=== PATIENT | male | born 1955 | race Caucasian/White ===

== ENCOUNTER → 2023-08-06 13:30 | Outpatient (CLI) | payer MEDICARE, SELFPAY ==
--- NOTE | 2023-08-06 14:40 | DI.RAD_ITS ---
Exam(s) XR HIP RT COMPLETE AP PELVIS EXAM: XR HIP RT COMPLETE AP PELVIS CLINICAL HISTORY: PAIN RT HIP JOINT M25.551. TECHNIQUE: 2D digital imaging was performed of the right hip. Three images were obtained. AP pelvis and lateral right hip views were obtained. COMPARISON: No exams were available for comparison FINDINGS: BONES: No acute fracture is present. No bony destructive lesion is seen. JOINTS: No dislocation present. There are marked degenerative changes seen in the right hip with loss of the joint space. Subchondral sclerosis and cysts are also seen. There is decreased volume of th e right femoral head. Osseous fragments are seen lateral to the right acetabulum which may be fragme nts of the femoral head. There is mild narrowing of the left hip joint space. Degenerative changes are seen in the lower lumbosacral spine. SOFT TISSUE: Normal. IMPRESSION: 1. Advanced degenerative changes seen in the right hip. 2. Possible fragmentation of the femoral head with osseous fragments lateral to the acetabulum. This may be chronic. CT scan may be considered for further evaluation. DATA REPOSITORY: RADIATION DOSE DELIVERED:
--- NOTE | 2023-08-06 14:40 | DI.RAD_ITS ---
Exam(s) XR LUMBAR SPINE COMPLETE EXAM: XR LUMBAR SPINE COMPLETE CLINICAL HISTORY: PAIN RT HIP JOINT M25.551. TECHNIQUE: 2D digital imaging was performed of the lumbar spine. Six images were obtained. AP, lat eral, right oblique, left oblique and L5-S1 spot views were obtained. COMPARISON: No exams were available for comparison FINDINGS: BONES: No fracture or destructive lesion. There are endplate osteophytes at multiple levels of the bethel mbar spine. There are degenerative changes of the facets particularly at L4-5 and L5-S1. DISKS: There is disc space narrowing at L3-4 and L5-S1. There is a vacuum disc at L3-4. ALIGNMENT: Lumbar spinal alignment is within normal limits. No spondylolysis or spondylolisthesis. SOFT TISSUE: Vascular calcifications are present. IMPRESSION: Moderate degenerative changes in the lumbar spine. DATA REPOSITORY: RADIATION DOSE DELIVERED:
== END ==
PROVIDERS: Visit Provider Physician Assistant Medical
DX: M51.26 Other intervertebral disc displacement, lumbar region (principal)
CPT/HCPCS: 72110; 73502

== ENCOUNTER → 2023-08-07 08:58 | Outpatient (CLI) | payer MEDICARE, SELFPAY ==
--- NOTE | 2023-08-07 | DI.CT_ITS ---
Exam(s) CT LOWER EXTREMITY RT WO EXAM: CT LOWER EXTREMITY RT WO CLINICAL HISTORY: INC. RT HIP PAIN,M25.551,ABNL XR,H/O FALL,? BONE FRAGMENT. TECHNIQUE: Imaging Protocol: Axial computed tomography images with coronal and sagittal reformatted images were created and reviewed. CONTRAST MATERIAL: Noncontrast- COMPARISON: CR XR HIP RT COMPLETE AP PELVIS from 08/06/2023 FINDINGS: Bones: There is no evidence of acute fracture or dislocation. Chronic appearing deformity of the femoral head with some collapse of the femoral head at the articul ar surface. There are multiple surrounding chronic appearing bony fragments. Joints: There are severe degenerative changes of the hip joint. There is severe joint space narrow ing. There is sclerosis and subchondral cyst formation on both sides of the joint. Soft Tissues: No visible hematoma. Large hip joint effusion Intrapelvic contents appendix visible appears normal. Status post prostatectomy. IMPRESSION: Severe degenerative changes of the right hip. Chronic appearing deformity of the femoral head with m ultiple adjacent bony fragments. No evidence of acute fracture. RADIATION DOSE DELIVERED: 593.65mGy.cm Total DLP DATA REPOSITORY: All CT scans at this facility are submitted to the National Radiology Data Registry (NRDR) Dose Index Registry (DIR) with the [employer] [place] [employer] (ACR). RADIATION OPTIMIZATION: All CT scans at this facility use at least one of these dose optimization te chniques: automated exposure control; mA and/or kV adjustment per patient size (includes targeted exa ms where dose is matched to clinical indication); or iterative reconstruction.
== END ==
PROVIDERS: Visit Provider Physician Assistant Medical
DX: M16.11 Unilateral primary osteoarthritis, right hip (principal)
CPT/HCPCS: 73700

== ENCOUNTER 2023-08-14 09:02 | Outpatient (CLI) | payer MEDICARE, SELFPAY ==
--- NOTE | 2023-08-14 08:15 | DI.RAD_ITS ---
Exam(s) XR PELVIS AP EXAM: XR PELVIS AP CLINICAL HISTORY: DJD R HIP. TECHNIQUE: 2D digital imaging was performed.One images were obtained. COMPARISON: CR XR HIP RT COMPLETE AP PELVIS from 08/06/2023 FINDINGS: BONES: No acute fracture is present. No bony destructive lesion is seen. JOINTS: No dislocation present. Stable advanced degenerative changes are seen in the right hip with l oss of volume and lateral subluxation of the right humeral head relative to the acetabulum. There is again seen an old osseous density lateral to the acetabulum. SOFT TISSUE: Normal. IMPRESSION: Stable chronic changes of the right hip. DATA REPOSITORY: RADIATION DOSE DELIVERED:
== END 2023-08-14 09:03 | disposition home or self-care (01) ==
LOC: DIORS 09:02
PROVIDERS: Visit Provider Physician Assistant
DX: M16.11 Unilateral primary osteoarthritis, right hip (principal)
CPT/HCPCS: 99203; 72170

== ENCOUNTER 2023-08-17 05:15 | Outpatient (CLI) | payer MEDICARE, SELFPAY ==
[2023-08-17 16:21] LABS: HCT 44.5 % (40.0-50.0); HGB 14.7 g/dL (13.5-17.5); MCH 31.7 pg (27.0-33.0); MCV 96 fL (80-95); MPV 9.5 fL (8.0-11.0); Platelet Count 311 10^3/uL (130-400); RBC 4.63 10^6/uL (4.36-5.78); RDW 12.4 % (11.8-14.1); RDW-SD 44.3 fL; WBC 12.35 10^3/uL (4.4-10.8)
[2023-08-17 17:37] LABS: Anion Gap 9.6 mmol/L (3-11); BUN 21 mg/dL (7-18); CO2 28.4 mmol/L (21.0-32.0); CREATININE 0.9 mg/dL (0.70-1.30); Calcium 9.2 mg/dL (8.5-10.1); Chloride 103 mmol/L (98-107); Estimated GFR 92.45 (mL/min/1.73m2); Glucose 88 mg/dL (74-106); Potassium 4.1 mmol/L (3.5-5.1); Sodium 141 mmol/L (136-145)
== END 2023-08-17 05:16 | disposition home or self-care (01) ==
LOC: LBO 05:16
PROVIDERS: Visit Provider Student in an Organized Health Care Education/Training Program
DX: M16.11 Unilateral primary osteoarthritis, right hip (principal); Z01.818 Encounter for other preprocedural examination
CPT/HCPCS: 36415; 80048; 85027

== ENCOUNTER 2023-08-18 08:21 | Day surgery (SDC) | payer MEDICARE, SELFPAY ==
[2023-08-18] VITALS (9 sets, daily range): BP systolic 112–148; BP diastolic 72–93; PULSE 69–92; RESP 15–18; TEMP 35.9–36.6; O2SAT 94–97; BMI 31.8
--- NOTE | 2023-08-18 07:52 | W.PM.DSUDISC ---
Date of service: 08/18/23 Time of Service: 09:13 Discharge Plan Disposition Patient Disposition: Home Condition: Good Discharge Details Reason For Visit: Right hip DJD Attending Provider: Saul Andrew Primary Care Provider: Antionette,Local Home Meds and New Rx's Prescriptions: New celecoxib [Celebrex] 200 mg capsule 200 mg PO BID PRNQty: 60 0RF Rx Instructions: Take one tablet twice daily for pain and inflammation aspirin 81 mg tablet,delayed release (DR/EC) 81 mg PO BID 30 Days Qty: 60 0RF acetaminophen 500 mg tablet 1,000 mg PO Q8H PRN Qty: 90 0RF Rx Instructions: Take two tablets up to every 8 hours as needed for pain pantoprazole 40 mg tablet,delayed release (DR/EC) 40 mg PO DAILY Qty: 14 0RF docusate sodium [Colace] 100 mg capsule 100 mg PO BID Qty: 30 0RF oxycodone 5 mg tablet 5 mg PO Q6H PRNQty: 12 0RF Rx Instructions: Take one tablet up to every 6 hours as needed for severe postoperative pain Continued allopurinol 300 mg tablet 300 mg PO DAILY irbesartan 150 mg tablet 150 mg PO DAILY rosuvastatin 20 mg tablet 20 mg PO DAILY Discontinued celecoxib 200 mg capsule 200 mg PO BID PRN (Reason: pain) Qty: 14 0RF Rx Instructions: Take one tablet twice a day for severe pain and inflammation Discharge Instructions Additional Instructions: Hip Synovectomy Discharge Instructions Activity: You have no restrictions on movement or positioning, but do not try to force what you do. You will find some stiffness and weakness with hip flexion (lifting your knee). Do not try to strengthen this too early, continue to practice walking and stairs and this will come. Dressing: Keep the surgical dressing in place for at least one week. After the first week it may be removed and replace with light gauze and tape or nothing. It may get wet after 3 days but avoid soaking the dressing. If it gets wet, just lightly pat dry. It is important to always keep some gauze between skin folds, especially when you are sitting. Spend some time with the wound exposed when you are lying flat as the incision does wrinkle onto itself. Medications: - You should take Tylenol and an anti-inflammatory Celebrex as your primary pain control medications. If the Celebrex is too expensive or not covered, please call the office for another alternative (Advil/Ibuprofen or Naproxen/Aleve). - You have been prescribed a stronger pain medication Oxycodone for breakthrough pain, take as needed as prescribed. - You have also been prescribed a stomach acid reduction agent Pantoprozole to help reduce stomach acid and reflux. - You will be taking Aspirin 81mg twice a day for DVT prevention unless instructed otherwise. - If you have constipation you should take Colace (which has been prescribed) or Miralax (which is available [id number]). It takes most people 3-4 days to have a bowel movement. Follow-up: 2 weeks If you have any acute concerns or questions, please do not hesitate to contact the office at [phone]. You may contact Dr. Andrew with any questions after hours through the hospital at [phone] or on his cell phone at [phone]. Stand Alone Forms: Anesthesia Discharge Inst., Cynthia Higgins (U) Referrals: Saul Andrew MD [ [facility] STAFF PHYSICIAN] - 08/31/23 2:00 pm Equipment/Supplies: Walker Activity:: Activity as Tolerated Remove Dressings/Wound Care:: Do Not Remove Shower/Bathe:: 72 hours and Cover Diet:: As Tolerated Discharge Orders Discharge Orders: Discharge Order (Routine); Ordered 08/18/23 Ordered By: Shruthi Betancourt
[2023-08-18] MEDS: Acetaminophen 500 MG TAB 1000 MG PO (09:02)
[2023-08-18] MEDS: Celecoxib 200 MG CAP 400 MG PO (09:03)
--- NOTE | 2023-08-18 09:09 | W.ANESPRE ---
General Info Date of Service Date Performed: 08/18/23 Height: 6 ft Weight: 106.5 kg Body Mass Index (BMI): 31.8 Surgical Procedure: Operation Date: 08/18/23 11:35 Proposed Procedure Side Surgeon p Hip Total Hip Anterior, ACTIS Right Saul Andrew MD Meds Allergies and Home Medications Allergies Allergy/AdvReac Type Severity Reaction Status Date / Time No Known Allergies Allergy Verified 08/14/23 15:03 Home Medication Medication Instructions Recorded allopurinol 300 mg tablet 300 mg PO DAILY 08/14/23 irbesartan 150 mg tablet 150 mg PO DAILY 08/14/23 rosuvastatin 20 mg tablet 20 mg PO DAILY 08/14/23 acetaminophen 500 mg tablet 1,000 mg (2 x 500 mg) PO Q8H PRN 08/18/23 pain #90 tabs aspirin 81 mg tablet,delayed 81 mg PO BID 30 days #60 tabs 08/18/23 release celecoxib 200 mg capsule (Celebrex) 200 mg PO BID PRN #60 caps 08/18/23 dexamethasone 4 mg tablet 4 mg PO DAILY #2 tabs 08/18/23 docusate sodium 100 mg capsule 100 mg PO BID #30 caps 08/18/23 (Colace) oxycodone 5 mg tablet 5 mg PO Q6H PRN #12 tabs 08/18/23 pantoprazole 40 mg tablet,delayed 40 mg PO DAILY #14 tabs 08/18/23 release Current Visit Medications: Current Medications Generic Name Dose Route Start Last Admin Trade Name Freq PRN Reason Stop Dose Admin Acetaminophen 1,000 mg 08/18/23 06:00 08/18/23 09:02 Acetaminophen 500 Mg Tab PO 08/18/23 18:00 1,000 mg PREOP ALEK Administration Celecoxib 400 mg 08/18/23 06:00 08/18/23 09:03 Celecoxib 200 Mg Cap PO 08/18/23 18:00 400 mg PREOP ALEK Administration Hydromorphone HCl 0.5 mg 08/18/23 07:50 Hydromorphone 2 Mg/Ml Syr IVP 09/17/23 07:49 Q2H PRN PRN Tranexamic Acid 1,000 mg/ 60 mls @ 360 mls/hr 08/18/23 06:00 Sodium Chloride IV 08/18/23 18:00 PREOP ALEK Ringer's Solution 1,000 mls @ 80 mls/hr 08/18/23 06:00 IV 09/16/23 23:59 INFUSION ALEK Cefazolin Sodium/Dextrose 2 gm in 50 mls @ 100 mls/hr 08/18/23 06:00 Ancef Duplex IVPB 08/18/23 16:00 PREOP ALEK Cefazolin Sodium/Dextrose 1 gm in 50 mls @ 100 mls/hr 08/18/23 08:00 Ancef Duplex IVPB 08/19/23 00:29 Q8H ALEK IV Miscellaneous Supplies 1 each 08/18/23 06:00 Iv Access IV 09/16/23 23:59 DIRECTED ALEK Ondansetron HCl 4 mg 08/18/23 07:50 Ondansetron 4 Mg/2 Ml Vial IVP 09/17/23 07:49 Q6H PRN PRN Nausea Oxycodone HCl 0 mg 08/18/23 07:50 Oxycodone 5 Mg Tab PO 09/17/23 07:49 Q3H PRN PRN Pain Sodium Chloride 0 ml 08/18/23 06:00 Normal Saline Flush 10 Ml Syr IV 09/16/23 23:59 PRN PRN Sodium Chloride 0 ml 08/18/23 06:00 Normal Saline 10 Ml Vial IJ 09/16/23 23:59 DIRECTED PRN Sterile Water 0 ml 08/18/23 06:00 Water,Injection,Sterile 10 Ml Vial IJ 09/16/23 23:59 DIRECTED PRN PFSH Active Problems Active Problems: Problem Status Onset Code Degenerative joint disease of right hip M16.11 Medical History Medical History (Updated 08/18/23 @ 08:52 by Zulma Casillas RN) Prostate CA Gout Hypertension Hyperlipidemia Surgical History Surgical History (Updated 08/18/23 @ 08:53 by Zulma Casillas RN) History of mandibular surgery Hx of cataract surgery History of arthroscopic knee surgery Tobacco Smoking/Tobacco Use Status: Never Alcohol Alcohol Intake: current Alcohol intake frequency: a few times a month Alcohol type: beer Substance Use Substance use: Never Substance use type: does not use Details: 08/11/23 - used CBD edibles Vital Signs and Lab Results Vital Signs Most Recent Vital Signs in EMR: Most Recent Vital Signs Temp Pulse Resp BP Pulse Ox 35.9 C L 92 H 16 140/93 H 97 08/18/23 08:42 02/06/24 08:42 08/18/23 08:42 08/18/23 08:42 08/18/23 08:42 Lab Results Blood Type / Crossmatch: No Data to Display Complete Blood Count: White Blood Count 12.35 10^3/uL (4.4-10.8) H 08/17/23 15:35 Red Blood Count 4.63 10^6/uL (4.36-5.78) 08/17/23 15:35 Hemoglobin 14.7 g/dL (13.5-17.5) 08/17/23 15:35 Hematocrit 44.5 % (40.0-50.0) 08/17/23 15:35 Platelet Count 311 10^3/uL (130-400) 08/17/23 15:35 Complete Metabolic Panel: Sodium 141 mmol/L (136-145) 08/17/23 15:35 Potassium 4.1 mmol/L (3.5-5.1) 08/17/23 15:35 Chloride 103 mmol/L (98-107) 08/17/23 15:35 Carbon Dioxide 28.4 mmol/L (21.0-32.0) 08/17/23 15:35 BUN 21 mg/dL (7-18) H 08/17/23 15:35 Creatinine 0.9 mg/dL (0.70-1.30) 08/17/23 15:35 Est GFR (CKD-EPI 2020) 92.45 (mL/min/1.73m2) 08/17/23 15:35 Calcium 9.2 mg/dL (8.5-10.1) 08/17/23 15:35 Glucose 88 mg/dL (74-106) 08/17/23 15:35 Liver Function Panel: No Data to Display Coagulation Panel: No Data to Display Cardiac Panel: No Data to Display Arterial Blood Gas: No Data to Display Venous Blood Gas: No Data to Display Pancreas Panel: No Data to Display Thyroid Panel: No Data to Display Infectious Disease: No Data to Display Blood Cultures: No Data to Display Toxicology Panel: No Data to Display Imaging and Studies Imaging and Studies Study information below may be from another EMR and interpreted by another provider. Please see original notes in EMR for more complete details. Other Study Summary:: lumbar spine xr reviewed and results in chart Anesthesia Assessment and Plan Anesthesia History Personal History: No History of Anesthesia Complications Family History: No Family History of Anesthesia Complications Exercise Tolerance Exercise Tolerance: Metabolic Equivalents>4 Pertinent Negatives Pertinent Negatives: No Symptoms of GERD, No Major Cardiovascular Symptoms or Complaints, No Major Pulmonary Symptoms or Complaints and No History of CVA/TIA Cardiac & Pulmonary Exam Cardiac Exam: Normal S1/S2 Heart Sounds Pulmonary Exam: Clear Bilateral Breath Sounds Implantable Cardiac Device Does patient have a Pacemaker or an ICD?: No Airway Exam Known Difficult Airway: No Mallampati Class: 3 Mouth Opening: Normal (> 3cm) Thyromental Distance: Greater than 3 cm Neck Range of Motion: Full ROM Neck Circumference: Normal Teeth Condition: Normal Dentition ASA Classification ASA Score: ASA 2 Emergency Case?: No NPO Status NPO Status: NPO Clears >2 hours, Solids >8 hours Anesthesia Plan Resuscitation Status: Full Code Anesthesia Technique: Spinal Anesthesia Airway Planned: Natural Airway Monitors Used: Standard Monitors
[2023-08-18] MEDS: Lactated Ringers 1,000 ML 80 ML IV (10:16)
[2023-08-18] MEDS: Normal Saline Flush 10 ML SYR IV (10:45)
[2023-08-18] MEDS: ceFAZolin 2 GM/50 ML BAG IVPB (10:56)
--- NOTE | 2023-08-18 11:34 | SYNOVIUM_PTH ---
PATIENT: Horaico Booker LOC: [facility] U#:[id number] AGE/SX: 68/M ROOM: RE08/18/[address]: Saul Andrew MD : 1955 BED: DIS: 08/18/2023 SPEC #: [id number] RECD: 08/18/23 12:40 STATUS: LOPEZ REQ #: [id number] BAYRON: 08/18/23 11:[address]: Saul Andrew DEPT: Surgical Specimen RECD BY: Rashida Hobbs ENTERED: 08/18/23 12:41 SP TYPE: SYNOVIUM OTHR DR: No Local InPatient Kirill Mccloud Tissues: 1 - SYNOVIUM/IAL Procedures: GROSS AND MICRO LEVEL 4 Comments: [id number]
--- NOTE | 2023-08-18 11:45 | PAPNONF_PTH ---
PATIENT: Horacio Booker LOC: [facility] U#:[id number] AGE/SX: 68/M ROOM: RE08/18/[address]: Saul Andrew MD : 1955 BED: DIS: 08/18/2023 SPEC #: [id number] RECD: 08/18/23 17:43 STATUS: LOPEZ REMyranda #: [id number] BAYRON: 08/18/23 11:[address]: Saul Andrew DEPT: [facility] Cytology RECD BY: Rashida Hobbs ENTERED: 08/18/23 17:43 SP TYPE: ZACHARIAH DE LEON DR: No Local Tissues: 1 - BODY FLUID CYTO(NOT S/U/N/EM)[facility] Procedures: BODY FLUID CYTO(NOT SPU/UR/NIP/ENDOM)[facility] Comments: [id number] (REFRIGERATED)
--- NOTE | 2023-08-18 11:55 | DI.RAD_ITS ---
Exam(s) XR HIP RT IN OR EXAM: XR HIP RT IN OR CLINICAL HISTORY: DJD RIGHT HIP. TECHNIQUE: 2D and realtime digital imaging was performed. COMPARISON: CR XR PELVIS AP from 08/14/2023 FINDINGS: Fluoroscopy was provided in the OR. Please see procedure note for details. Fluoro time: 3.1seconds RADIATION DOSE DELIVERED: Bernardor=0.52 mGy
--- NOTE | 2023-08-18 12:16 | ROE_ITS ---
Date of service: 08/18/23 Time of Service: 11:20 Operative Note Operative Note DATE OF PROCEDURE: 08/18/23 PRE-OP DIAGNOSIS: Right Hip Arthritis with Femoral Head Collapse POST-OP DIAGNOSIS: same (Effusion with suspicion for infection) PROCEDURE: Right Hip Synovectomy SURGEON: Saul Andrew MEDICAL CLAIMS REPRESENTATIVE: Shruthi Betancourt ANESTHESIA TYPE: Spinal Refer to Anesthesia Record ESTIMATED BLOOD LOSS: 20 PATHOLOGY: none sent TOURNIQUET TIME: 0 COMPLICATIONS: Other (The intended surgery of the hip replacement was aborted due to the discovery of a thick, viscous green fluid within the right hip. Given the concern for infection and its unknown etiology, I aborted the hip replacement, sent samples to the lab and pathology, and performed a simple synovectomy.) Patient was transported to: PACU Patient's condition: stable Indications: Mike is a 68-year-old active male who presents with debilitating right hip pain. He was seen in the office with notable collapse of his right femoral head. This was suspected to be from avascular necrosis. No other significant findings. I thus recommended proceeding with hip replacement. I discussed the risk of the procedure to include bleeding, infection, pain, stiffness, damage to muscle and tendons, damage to nerves or vessels, leg length inequality, blood clot, fracture, need for repeat procedures. Despite these risk, he elects to proceed. Findings: Purulent material was encountered upon entering the hip capsule. It was unclear what this represented although he had no other systemic findings or suggestion of infection. Given the finding of this material I aborted the surgery after performing a limited synovectomy and aggressive irrigation. Procedure Description: Mike was greeted in the preoperative holding area where the correct side was identified and marked. The consent was reviewed with the patient and signed. The history and physical was updated. All questions were answered. He was taken back to the operating room. A spinal anesthestic was then administered. The feet were wrapped with cast padding and Coban and then placed into the boot liners and then into the boots. Care was taken to protect the skin and make sure the heels were fully down and the boots were stable. The patient was then positioned onto the HANA table. Both legs were held in a neutral position. SCDs were applied. The patient was then slid down onto a peroneal post. Prophylactic antibiotics in the form of Cefazolin were administered. 1g of Tranxemic Acid was given intravenously within 30 minutes of incision. The right leg was then prepped with Chloraprep and draped in a standard fashion. A second prep with Chloraprep was performed prior to placement of a shower-curtain type drape with Iodine impregnated skin protection. A timeout to confirm correct identity, side and site, procedure, allergies, anesthesia, and medical concerns was performed. An obliquely oriented incision was made starting lateral to the ASIS and running distal over the Tensor Fascia Leatha (TFL) muscle belly toward the fibular head, approximately 10cm. The skin and soft tissue was dissected sharply, through Buster?s fascia, and to the fascia of the TFL. With the fascia and superior border of the IT band identified, the fascia was incised with a new knife just above any perforators from the IT band. The TFL muscle belly was bluntly dissected away from the fascia and moved laterally. The fat between TFL and rectus was identified to ensure the dissection was not within the TFL. Blunt dissection created space between abductors and the capsule and retractor was placed over the lateral femoral neck. The fibers of the rectus femoris tendon were identified and these were freed from the anterior capsule. A second cobra retractor was placed around the medial femoral neck. The TFL was further retracted laterally to show the deep fascia. Careful dissection through this layer identified three main crossing vessels of the lateral femoral circumflex. These were cauterized in multiple locations and then cut without any noticeable bleeding. The TFL was further released bluntly from the deep fascia to expose anterior hip capsule and fat The Michel orthopaedic retractor was then placed beneath the TFL and against sartorius and medial soft tissues to protect and retract the soft tissues. A T-capsulotomy was then performed starting at the superior lateral acetabulum and moving distally to the intertrochanteric ridge. Immediately upon entering the capsule there was a westfall of a thick greenish colored fluid. This is a pale color green with some particulate. It was quite viscous and sticky. I attempted to aspirate some of this fluid through an 18-gauge needle but it clogged the needle. I was able to aspirate some into a syringe through the blunt end of the syringe. Swabs were also utilized to capture some of the material and sent for aerobic and anaerobic culture. Some of the fluid was sent to the lab for culture and some sent to pathology for cytology. There was some synovitis seen along with significant chondromalacia of the femoral neck. I did some debridement of the synovium in this area and sent some of this tissue for pathology assessment. At this point I was unsure of the best next step. There is obviously concern for infection although he had no other systemic or clinical findings to suggest that this was infected. Furthermore, likelihood of a negative hip becoming infected without any immunocompromisation or recent systemic illness would be extremely rare. However, is uncertain of what this fluid meant and what his etiology was. Therefore, after performing aggressive irrigation with both chlorhexidine fluid and saline as well as performing a limited synovectomy to the anterior hip joint, I decided to abort the hip replacement and closed up. The capsular flaps were closed with a #1 Ethibond. The deep and subcutaneous tissue was injected with a periarticular cocktail consisting of ropivacaine, epinephrine, clonidine, and ketorolac. The TFL fascia was finally closed with a No. 2 Stratafix, barbed suture. Deep tissues were then reapproximated with 0 Vicryl and a running 2-0 Vicryl. The skin was closed with a running 4-0 Monocryl in a subcuticular fashion. This was reinforced with skin glue. A Mepilex silver dressing was applied. At the end of the case, all counts were correct. Done was transferred to the hospital bed without difficulty. Cultures and pathology specimens were submitted. I updated his by phone and eventually done in person in the recovery room about the status of his hip replacement. His prognosis is guarded being that I do not know the exact etiology of this fluid. I discussed the case with the lab here as well as the pathologist to make sure appropriate testing was performed. He may ambulate as tolerated. I am not going to start him on any antibiotics or admit at this point as we are not certain the cause of this fluid and he has no systemic findings. I communicated all of this to him and his in person. I will continue to follow the labs. I will also reach out some other colleagues to determine the best next steps. Weightbearing as tolerated with assistive devices.
[2023-08-18 12:30] LABS: ESR 22 mm/hr (0-20)
[2023-08-18 12:42] LABS: C-Reactive Protein 4.61 mg/dL (<or=0.5)
--- NOTE | 2023-08-18 12:53 | PT.INNT ---
PT Notes Visit Reasons: Right hip DJD Surgery cancelled.
--- NOTE | 2023-08-18 14:45 | W.ANESPOSTOP ---
Postoperative Evaluation Date, Time and Location Date Performed: 08/18/23 Time Performed: 14:45 Patient Location: Day Surgery Unit Vital Signs Most Recent Imported Vital Signs: Most Recent Vital Signs Temp Pulse Resp BP Pulse Ox 36.4 C L 72 16 148/90 H 97 08/18/23 13:55 08/18/23 13:55 08/18/23 13:55 08/18/23 13:55 08/18/23 13:55 Pain Score Most Recent Pain Score: Most Recent Pain Score Pain Level 1 08/18/23 13:55 Assessment Mental Status: Awake (Alert & Oriented to Patient Baseline) Airway and Respiratory Function: Patent airway with normal (patient baseline) respiratory exam Cardiovascular Function: Hemodynamically Stable Hydration Status: Adequately Hydrated Nausea & Vomiting: No Nausea or Vomiting Pain: Pain is tolerable per patient Peripheral Nerve Block: Patient did not receive a nerve block
--- NOTE | 2023-08-18 15:37 | W.ANESPOSTOP ---
Postoperative Evaluation Date, Time and Location Date Performed: 08/18/23 Time Performed: 15:37 Patient Location: Day Surgery Unit Vital Signs Most Recent Imported Vital Signs: Most Recent Vital Signs Temp Pulse Resp BP Pulse Ox 36.4 C L 72 16 148/90 H 97 08/18/23 13:55 08/18/23 13:55 08/18/23 13:55 08/18/23 13:55 08/18/23 13:55 Most Recent Vital Signs Temp Pulse Resp BP Pulse Ox 36.4 C L 72 16 148/90 H 97 08/18/23 13:55 08/18/23 13:55 08/18/23 13:55 08/18/23 13:55 08/18/23 13:55 Pain Score Most Recent Pain Score: Most Recent Pain Score Pain Level 1 08/18/23 13:55 Assessment Mental Status: Awake (Alert & Oriented to Patient Baseline) Airway and Respiratory Function: Patent airway with normal (patient baseline) respiratory exam Cardiovascular Function: Hemodynamically Stable Hydration Status: Adequately Hydrated Nausea & Vomiting: No Nausea or Vomiting Pain: Pt. Denies Any Pain Peripheral Nerve Block: Regional nerve block not resolved at time of post operative discharge
== END 2023-08-18 15:00 | disposition home or self-care (01) ==
PROVIDERS: Visit Provider Student in an Organized Health Care Education/Training Program
PROC: (CPT 27130; principal; 2023-08-18 11:15)
DX: M16.11 Unilateral primary osteoarthritis, right hip (principal); M25.451 Effusion, right hip; M94.251 Chondromalacia, right hip; M65.88 Other synovitis and tenosynovitis, other site
CPT/HCPCS: 27054; 20985; 36415; 85652; 88305; 73501; 86140; 87070; 87075; 87205; 88104; J0690; J1100; J2001; J2250; J2371; J2401; J2405; J2704

== ENCOUNTER 2023-09-02 08:25 | Day surgery (SDC) | payer MEDICARE, SELFPAY ==
[2023-09-02] VITALS (8 sets, daily range): BP systolic 101–149; BP diastolic 62–96; PULSE 69–97; RESP 12–21; TEMP 36.5–36.6; O2SAT 95–99; BMI 31.7
--- NOTE | 2023-09-02 07:25 | W.PM.DSUDISC ---
Date of service: 09/02/23 Time of Service: 07:25 Discharge Plan Disposition Patient Disposition: Home Condition: Good Discharge Details Reason For Visit: L THR Attending Provider: Saul Andrew Primary Care Provider: None,None Home Meds and New Rx's Prescriptions: New dexamethasone 4 mg tablet 4 mg PO DAILY Qty: 2 0RF Rx Instructions: Starting Post-Operative Day #1 (Day after surgery) Continued allopurinol 300 mg tablet 300 mg PO DAILY irbesartan 150 mg tablet 150 mg PO DAILY rosuvastatin 20 mg tablet 20 mg PO DAILY docusate sodium [Colace] 100 mg capsule 100 mg PO BID Qty: 30 0RF celecoxib [Celebrex] 200 mg capsule 200 mg PO BID PRNQty: 60 0RF Rx Instructions: Take one tablet twice daily for pain and inflammation aspirin 81 mg tablet,delayed release (DR/EC) 81 mg PO BID 30 Days Qty: 60 0RF acetaminophen 500 mg tablet 1,000 mg PO Q8H PRN Qty: 90 0RF Rx Instructions: Take two tablets up to every 8 hours as needed for pain pantoprazole 40 mg tablet,delayed release (DR/EC) 40 mg PO DAILY Qty: 14 0RF oxycodone 5 mg tablet 5 mg PO Q4H MDD 6 tabs PRN (Reason: pain) Qty: 20 0RF Rx Instructions: Take one tablet up to every 4 hours as needed for severe postoperative pain Discharge Instructions Additional Instructions: Total Hip Discharge Instructions Activity: The most important activity is to walk. You should try to take short walks a few times a day. You have no restrictions on movement or positioning, but do not try to force what you do. You will find some stiffness and weakness with hip flexion (lifting your knee). Do not try to strengthen this too early, continue to practice walking and stairs and this will come. - Outpatient physical therapy can be helpful to help return you to a normal gait and improve your flexibility and strength. This can start around 2 weeks. For some patients, it?s not necessary. Usually this is determined at the time of discharge or at the first post-operative visit. - You should wear the EROS hose on both legs for 2 weeks. Dressing: Keep the surgical dressing in place for at least one week. After the first week it may be removed and replace with light gauze and tape or nothing. It may get wet after 3 days but avoid soaking the dressing. If it gets wet, just lightly pat dry. It is important to always keep some gauze between skin folds, especially when you are sitting. Spend some time with the wound exposed when you are lying flat as the incision does wrinkle onto itself. Medications: - You should take Tylenol and an anti-inflammatory Celebrex as your primary pain control medications. If the Celebrex is too expensive or not covered, please call the office for another alternative (Advil/Ibuprofen or Naproxen/Aleve). - You have been prescribed a stronger pain medication Oxycodone for breakthrough pain, take as needed as prescribed. - You have also been prescribed a stomach acid reduction agent Pantoprozole to help reduce stomach acid and reflux. - You have also been prescribed Decadron to help with post-operative nausea and pain. You will take this for two days starting tomorrow. - You will be taking Aspirin 81mg twice a day for DVT prevention unless instructed otherwise. - If you have constipation you should take Colace or Miralax (both [id number]). It takes most people 3-4 days to have a bowel movement. Follow-up: 2 weeks If you have any acute concerns or questions, please do not hesitate to contact the office at [phone]. You may contact Dr. Andrew with any questions after hours through the hospital at [phone] or on his cell phone at [phone]. Referrals: Saul Andrew MD [ [facility] STAFF PHYSICIAN] - Equipment/Supplies: Walker Activity:: Activity as Tolerated Shower/Bathe:: 72 hours Diet:: As Tolerated Discharge Orders Discharge Orders: Discharge Order (Routine); Ordered 09/02/23 Ordered By: Saul Adnrew DS: Diagnosis Discharge Diagnosis (1) Degenerative joint disease of right hip: Status: Acute
--- NOTE | 2023-09-02 08:48 | W.PREOPHP ---
Assessment and Plan Assessment and plan (1) Degenerative joint disease of right hip: Status: Acute Assessment and plan: Horacio is a 68-year-old male who has significant collapse likely from avascular necrosis. He has severe deformity of the head which is led to notable dysfunction in daily activities including significant pain. The unexpected findings of the previous surgery have been adequately investigated and did not show signs of infection and therefore we can move forward with hip replacement surgery. Once again I reviewed the hip replacement with him today. I discussed risk to include bleeding, infection, pain, stiffness, leg length inequality, fracture, damage to nerves and vessels, blood clot. Despite these risk, he elects to proceed. History of Present Illness History of Present Illness Chief Complaint: Right Hip Avascular Necrosis Narrative: Wisam is a 68-year-old who I saw for acute femoral head collapse in the setting of likely avascular necrosis. He was taken to the operating room approximate 2 weeks ago. Unfortunately during the surgery there was significant debris encountered within the hip which was concerning for infection. Therefore the surgery was aborted. Pathology, cytology, and cultures were obtained which all showed what appeared to be bony debris and necrosis without any signs of infection. He has otherwise done well. There was some concern for calcium pyrophosphate crystals, however no calcium urate. With all this information I did offer moving forward with the hip replacement given the severity of his disease process and the negative findings. He denies any issues with the wound. He denies any fevers or chills. He has been relying on the pain medication due to the significant discomfort about the right hip. He had no issues with the anesthetic last time. He currently denies any chest pain or shortness of breath. No recent illness. Review of Systems All systems reviewed & are unremarkable except as noted in HPI and below PFSH All Active Problems (Updated 09/02/23 @ 08:50 by Saul Andrew MD) Degenerative joint disease of right hip (Acute) Medical History Prostate CA Gout Hypertension Hyperlipidemia Surgical History History of mandibular surgery Hx of cataract surgery History of arthroscopic knee surgery Social History Smoking/Tobacco Use Status: Never Smoking risk assessment performed?: Yes Alcohol Intake: current Alcohol Intake frequency: a few times a month Alcohol type: beer Drug use: Never Substance use type: does not use Housing: house Do you feel safe at home: Yes Do you feel safe in your relationship?: Yes Meds Allergies and Home Medications Allergies Allergy/AdvReac Type Severity Reaction Status Date / Time No Known Allergies Allergy Verified 08/31/23 15:49 Home Medications Medication Instructions Recorded Confirmed Type allopurinol 300 mg tablet 300 mg PO DAILY 08/14/23 09/02/23 History irbesartan 150 mg tablet 150 mg PO DAILY 08/14/23 09/02/23 History rosuvastatin 20 mg tablet 20 mg PO DAILY 08/14/23 09/02/23 History acetaminophen 500 mg tablet 1,000 mg (2 x 500 mg) PO Q8H PRN 08/18/23 09/02/23 Rx pain #90 tabs aspirin 81 mg tablet,delayed 81 mg PO BID 30 days #60 tabs 08/18/23 09/02/23 Rx release celecoxib 200 mg capsule (Celebrex) 200 mg PO BID PRN #60 caps 08/18/23 09/02/23 Rx docusate sodium 100 mg capsule 100 mg PO BID #30 caps 08/18/23 09/02/23 Rx (Colace) pantoprazole 40 mg tablet,delayed 40 mg PO DAILY #14 tabs 08/18/23 09/02/23 Rx release oxycodone 5 mg tablet 5 mg PO Q4H PRN pain #30 tabs 08/23/23 09/02/23 Rx Exam Resp Auscultation: clear to auscultation bilaterally Cardio Rate: regular rate Rhythm: regular rhythm Extrem Other: Evaluation of the right hip shows a well-healed incision. No signs of infection. There is some fullness about the right hip.
[2023-09-02] MEDS: Celecoxib 200 MG CAP 400 MG PO (09:06)
[2023-09-02] MEDS: Acetaminophen 500 MG TAB 1000 MG PO (09:07)
[2023-09-02] MEDS: Lactated Ringers 1,000 ML 80 ML IV (09:07)
--- NOTE | 2023-09-02 09:17 | W.ANESPRE ---
General Info Date of Service Date Performed: 09/02/23 Height: 6 ft Weight: 106.2 kg Body Mass Index (BMI): 31.7 Surgical Procedure: Operation Date: 09/02/23 11:05 Proposed Procedure Side Surgeon p Hip Total Hip Anterior Right Saul Andrew MD Meds Allergies and Home Medications Allergies Allergy/AdvReac Type Severity Reaction Status Date / Time No Known Allergies Allergy Verified 08/31/23 15:49 Home Medication Medication Instructions Recorded allopurinol 300 mg tablet 300 mg PO DAILY 08/14/23 irbesartan 150 mg tablet 150 mg PO DAILY 08/14/23 rosuvastatin 20 mg tablet 20 mg PO DAILY 08/14/23 docusate sodium 100 mg capsule 100 mg PO BID #30 caps 08/18/23 (Colace) acetaminophen 500 mg tablet 1,000 mg (2 x 500 mg) PO Q8H PRN 09/02/23 pain #90 tabs aspirin 81 mg tablet,delayed 81 mg PO BID 30 days #60 tabs 09/02/23 release celecoxib 200 mg capsule (Celebrex) 200 mg PO BID PRN #60 caps 09/02/23 dexamethasone 4 mg tablet 4 mg PO DAILY #2 tabs 09/02/23 oxycodone 5 mg tablet 5 mg PO Q4H PRN pain #20 tabs 09/02/23 pantoprazole 40 mg tablet,delayed 40 mg PO DAILY #14 tabs 09/02/23 release Current Visit Medications: Current Medications Generic Name Dose Route Start Last Admin Trade Name Freq PRN Reason Stop Dose Admin Acetaminophen 1,000 mg 09/02/23 06:00 09/02/23 09:07 Acetaminophen 500 Mg Tab PO 09/02/23 16:00 1,000 mg PREOP ALEK Administration Acetaminophen 1,000 mg 09/02/23 07:24 Acetaminophen 500 Mg Tab PO 10/02/23 07:23 TID PRN PRN Analgesia Celecoxib 400 mg 09/02/23 06:00 09/02/23 09:06 Celecoxib 200 Mg Cap PO 09/02/23 16:00 400 mg PREOP ALEK Administration Docusate Sodium 100 mg 09/02/23 07:24 Docusate Sodium 100 Mg Cap PO 10/02/23 07:23 BID PRN PRN Constipation Tranexamic Acid 1,000 mg/ 60 mls @ 360 mls/hr 09/02/23 06:00 Sodium Chloride IV 09/02/23 16:00 PREOP ALEK Ringer's Solution 1,000 mls @ 80 mls/hr 09/02/23 06:00 09/02/23 09:07 IV 09/02/23 23:59 80 mls/hr INFUSION ALEK Administration Cefazolin Sodium/Dextrose 2 gm in 50 mls @ 100 mls/hr 09/02/23 06:00 Ancef Duplex IVPB 09/02/23 23:59 PREOP ALEK IV Miscellaneous Supplies 1 each 09/02/23 06:00 Iv Access IV 09/02/23 23:59 DIRECTED ALEK Ondansetron HCl 4 mg 09/02/23 07:24 Ondansetron 4 Mg/2 Ml Vial IVP 10/02/23 07:23 Q6H PRN PRN Nausea Oxycodone HCl 0 mg 09/02/23 07:24 Oxycodone 5 Mg Tab PO 10/02/23 07:23 Q3H PRN PRN Pain Polyethylene Glycol 17 gm 09/02/23 07:24 Polyethylene Glycol 3350 17 Gm Packet PO 10/02/23 07:23 BID PRN PRN Constipation Sodium Chloride 0 ml 09/02/23 06:00 Normal Saline Flush 10 Ml Syr IV 09/02/23 23:59 PRN PRN Sodium Chloride 0 ml 09/02/23 06:00 Normal Saline 10 Ml Vial IJ 09/02/23 23:59 DIRECTED PRN Sterile Water 0 ml 09/02/23 06:00 Water,Injection,Sterile 10 Ml Vial IJ 09/02/23 23:59 DIRECTED PRN PFSH Active Problems Active Problems: Problem Status Onset Code Degenerative joint disease of right hip M16.11 Medical History Medical History Prostate CA Gout Hypertension Hyperlipidemia Surgical History Surgical History History of mandibular surgery Hx of cataract surgery History of arthroscopic knee surgery Tobacco Smoking/Tobacco Use Status: Never Alcohol Alcohol Intake: current Alcohol intake frequency: a few times a month Alcohol type: beer Substance Use Substance use: Never Substance use type: does not use Vital Signs and Lab Results Vital Signs Most Recent Vital Signs in EMR: Most Recent Vital Signs Temp Pulse Resp BP Pulse Ox 36.5 C 74 16 149/96 H 98 09/02/23 09:10 09/02/23 09:10 09/02/23 09:10 09/02/23 09:10 09/02/23 09:10 Lab Results Blood Type / Crossmatch: No Data to Display Complete Blood Count: White Blood Count 12.35 10^3/uL (4.4-10.8) H 08/17/23 15:35 Red Blood Count 4.63 10^6/uL (4.36-5.78) 08/17/23 15:35 Hemoglobin 14.7 g/dL (13.5-17.5) 08/17/23 15:35 Hematocrit 44.5 % (40.0-50.0) 08/17/23 15:35 Platelet Count 311 10^3/uL (130-400) 08/17/23 15:35 Complete Metabolic Panel: Sodium 141 mmol/L (136-145) 08/17/23 15:35 Potassium 4.1 mmol/L (3.5-5.1) 08/17/23 15:35 Chloride 103 mmol/L (98-107) 08/17/23 15:35 Carbon Dioxide 28.4 mmol/L (21.0-32.0) 08/17/23 15:35 BUN 21 mg/dL (7-18) H 08/17/23 15:35 Creatinine 0.9 mg/dL (0.70-1.30) 08/17/23 15:35 Est GFR (CKD-EPI 2020) 92.45 (mL/min/1.73m2) 08/17/23 15:35 Calcium 9.2 mg/dL (8.5-10.1) 08/17/23 15:35 Glucose 88 mg/dL (74-106) 08/17/23 15:35 C-Reactive Protein 4.61 mg/dL (<or=0.5) 08/18/23 12:25 Liver Function Panel: No Data to Display Coagulation Panel: No Data to Display Cardiac Panel: No Data to Display Arterial Blood Gas: No Data to Display Venous Blood Gas: No Data to Display Pancreas Panel: No Data to Display Thyroid Panel: No Data to Display Infectious Disease: No Data to Display Blood Cultures: No Data to Display Toxicology Panel: No Data to Display Imaging and Studies Imaging and Studies Study information below may be from another EMR and interpreted by another provider. Please see original notes in EMR for more complete details. Other Study Summary:: lumbar spine xr reviewed and results in chart Anesthesia Assessment and Plan Anesthesia History Personal History: No History of Anesthesia Complications Family History: No Family History of Anesthesia Complications Exercise Tolerance Exercise Tolerance: Metabolic Equivalents>4 Pertinent Negatives Pertinent Negatives: No Symptoms of GERD, No Major Cardiovascular Symptoms or Complaints and No Major Pulmonary Symptoms or Complaints Cardiac & Pulmonary Exam Cardiac Exam: Normal S1/S2 Heart Sounds Pulmonary Exam: Clear Bilateral Breath Sounds Implantable Cardiac Device Does patient have a Pacemaker or an ICD?: No Airway Exam Known Difficult Airway: No Mallampati Class: 3 Mouth Opening: Normal (> 3cm) Thyromental Distance: Greater than 3 cm Neck Range of Motion: Full ROM Neck Circumference: Normal Teeth Condition: Normal Dentition ASA Classification ASA Score: ASA 2 Emergency Case?: No NPO Status NPO Status: NPO Clears >2 hours, Solids >8 hours Anesthesia Plan Resuscitation Status: Full Code Anesthesia Technique: Spinal Anesthesia Airway Planned: Natural Airway Monitors Used: Standard Monitors
[2023-09-02] MEDS: ceFAZolin 2 GM/50 ML BAG IVPB (09:55)
--- NOTE | 2023-09-02 11:15 | DI.RAD_ITS ---
Exam(s) XR HIP RT IN OR EXAM: XR HIP RT IN OR CLINICAL HISTORY: right hip ostoearthritis TECHNIQUE: 2D and realtime digital imaging was performed. CONTRAST MATERIAL: Refer to procedure report. COMPARISON: CR XR PELVIS AP from 08/14/2023 XA XR HIP RT IN OR from 08/18/2023 FINDINGS: Fluoroscopy was provided for Dr. Andrew during the performance of a right total hip replacement. Please refer to the procedure report for complete details. Ka,r=3.81 mGy IMPRESSION: RADIATION DOSE DELIVERED:
--- NOTE | 2023-09-02 11:44 | W.PM.OP ---
Date of service: 09/02/23 Time of Service: 10:15 Operative Note Operative Note PRE-OP DIAGNOSIS: Right Hip Avascular Necrosis POST-OP DIAGNOSIS: same PROCEDURE: Right Anterior Total Hip Arthroplasty with Intraoperative Navigation SURGEON: Saul Andrew [employer]SE [employer] DRIVER: Antwon Johnson ANESTHESIA TYPE: Spinal Refer to Anesthesia Record ESTIMATED BLOOD LOSS: 250 PATHOLOGY: none sent TOURNIQUET TIME: 0 COMPLICATIONS: None Patient was transported to: PACU Patient's condition: stable Implants: 1. Depuy Winston Acetabular Component, 54mm 2. Depuy Acetabular Liner, 27m21gv 3. Depuy Actis Standard Collared Femoral Stem, Size 6 4. Depuy Altrx Ceramic Femoral Head, Size 36+8.5mm Indications: I have seen Mike in clinic for symptoms of hip arthritis with avascular necrosis, confirmed with radiographic findings. He has exhausted nonoperative methods and was having significant limitations in daily function and desired better function and less pain. He had an attempted hip replacement 2 weeks ago which was aborted due to the encounter of necrotic and potentially infectious material within the hip. This has showed no signs of infection and seem to represent necrotic bone on cytology and pathology evaluation, therefore I offered return to the OR for completion of the hip revision. Once again, I discussed the technical details of a hip replacement. I explained the risks of the procedure to include, but not limited to, bleeding, infection, pain, stiffness, fracture, damage to nerves and vessels, damage to muscles and tendons, loosening, instability, leg length inequality, need for repeat procedure, blood clot and cardiopulmonary demise. Despite these risks, Mike elected to proceed. Findings: There was significant collapse of the femoral head. Large osteophytes were present with deformity of the femoral head. Significant synovitis seen throughout the hip itself. Procedure Description: Mike was greeted in the preoperative holding area where the correct side was identified and marked. The consent was reviewed with the patient and signed. The history and physical was updated. All questions were answered. Mike was taken back to the operating room. A spinal anesthestic was then administered. The feet were wrapped with cast padding and Coban and then placed into the boot liners and then into the boots. Care was taken to protect the skin and make sure the heels were fully down and the boots were stable. The patient was then positioned onto the HANA table. Both legs were held in a neutral position. SCDs were applied. The patient was then slid down onto a peroneal post. Prophylactic antibiotics in the form of Cefazolin were administered. 1g of Tranxemic Acid was given intravenously within 30 minutes of incision. The right leg was then prepped with Chloraprep and draped in a standard fashion. A second prep with Chloraprep was performed prior to placement of a shower-curtain type drape with Iodine impregnated skin protection. A timeout to confirm correct identity, side and site, procedure, allergies, anesthesia, and medical concerns was performed. The previous incision was then utilized. This was incised sharply. Previous sutures were cut through and then removed. There is an evacuation of a large hematoma/seroma. Blunt dissection was carried down to the level of the Buster's fascia and tensor fascia lefty fascia. Marking sutures were placed previously to marked the incision. These were cut and the deep fascia was incised down to the muscle of the TFL. This muscle was then retracted laterally and the deeper dissection was clearly evident. Further seroma and hematoma was evacuated. The previous capsulotomy had been performed and the #1 Ethibond which was used was cut. The capsular flaps were further identified and tagged with #1 Ethibond. The capsular flaps were released to the shoulder of the lateral neck and to the lesser trochanter to give excellent visualization of the proximal femur. A neck osteotomy was performed using an oscillating saw based on preoperative templates. This cut started in the shoulder and of the lateral neck and exited medially. The saw was at all times directed medially to avoid injury to the greater trochanter. Gross traction was applied to the leg and the osteotomy opened. The femoral head was removed with a corkscrew, making sure to protect the TFL on its exit. Traction was released after head removal. This was measured on the back table to determine the starting reamer size. Portions of the rectus obscuring visualization were minimally elevated off the superior acetabulum. An anterior retractor was placed over the anterior wall between capsule and labrum and attached to the Gripper retraction system. The femur was rotated to 90 degrees and medial capsule was fully released until the lesser trochanter was palpable and visible; the femur was returned to 30 degrees. A posterior retractor was placed similarly between capsule and labrum. This provided excellent visualization. The contents of the cotyloid fossa were removed with electrocautery and the labrum was removed with a knife. There was a notable floor osteophyte. There was significant chondromalacia of the superior acetabulum. Acetabular reaming began with a 48mm reamer. This first reaming was directed anterior to posterior and medial to get down to the true floor. This was inspected and reamed until the true floor was reached. The anterior retractor was then released and entry and exit was provided by traction on the capsular flaps. I then reamed sequentially up to a 54mm reamer where good fit was obtained. The larger reamers were oriented based on anatomical reference of the anterior and lateral esquivel to ensure proper abduction and anteversion. Positioning and size was confirmed with the fluoroscopy. A 54mm Depuy Winston acetabular component was selected. The acetabulum was reamed around the periphery with the selected acetabular size to prevent a rim fit. The deep tissues were irrigated. The acetabular component was then impacted in a position of about 40-45 degrees of abduction and 15-20 degrees of anteversion, using the patient?s anatomy as the ultimate landmark. Fluoroscopy was used to confirm this. There was excellent tool grinder operator external of the acetabular component and the inserting handle was removed. The acetabular liner, Depuy [id number] polyethylene liner, was inserted and lined up with the tines of the acetabular component. There was no soft tissue interposition. The liner was then impacted into position and confirmed to be well-seated. A portion of the vickie-articular cocktail was then injected around the acetabulum into the capsule and periosteum. This cocktail consisted of 123mg of Ropivacaine, 0.25mg of Epinephrine, 0.04mg of Clonidine, and 15mg of Ketorolac, diluted to 50cc. The leg was rotated to 120 degrees. Any remaining medial capsule was released until the lesser trochanter was easily palpable. A retractor was placed medially. The lateral capsule was further released into the shoulder to allow access to the greater trochanter. A Bowser retractor was placed over the greater trochanter which allowed the trochanter to flip in front of the capsule for excellent exposure. The leg was brought down into maximal extension and 20 degrees of adduction while ensuring there was no impingement on the acetabulum. Any remnant capsule within the trochanter was released. Piriformis and obturator externis were identified and protected. There was excellent access to the proximal femur. The lateral neck remnant was removed with a rongeur. A blunt canal probe was used to identify the canal and trajectory for later broaching. A box osteotome initiated the broach course. A small curved rasp and a curved curette were used to work laterally. Broaching then began with a starter Actis broach. This was inserted manually around the trochanter and into the canal before mallet blows. The broach was seated to the neck cut level based on the neck cut and the preoperative template. Sequential broaching was continued with the [employer] pneumatic broaching device until a tight fit was obtained with good rotational control of the femur. A trial standard neck was inserted along with a +8.5 trial head. The leg was brought out of extension and adduction and then reduced with traction and internal rotation. The leg was stable anteriorly in a position of 30 degrees of extension and 90 degrees of external rotation. Fluoroscopy was used to ensure there was no fracture and the stem was seated well. Leg lengths were checked with an AP pelvis and pelvic reference points. [employer] navigation system was used to confirm appropriate positioning and leg length and offset. Once content with the desired offset and leg lengths, the leg was brought back into extension, external rotation and adduction. The periosteum and surrounding tissue was injected with remaining portion of the vickie-articular cocktail. The proximal femur was irrigated as well as the deep tissues. The Depuy Actis standard collared stem, size 6, was then manually inserted into the proximal femur making sure to control rotation. It was then malleted into position with light blows, giving breaks to allow bone expansion and decrease risk of fracture. The selected Depuy Altrx Ceramic Head, size 36+8.5mm, was then placed onto the clean and dry trunnion and secured with impaction onto the tapered fit. The leg was brought back out of extension and adduction and reduced with traction and internal rotation. Stability was confirmed with no shuck at 90 degrees of external rotation and 30 degrees of extension. No impingement through range of motion arc. Final x-ray images were obtained with fluoroscopy to confirm adequate positioning and no intraoperative fracture. The deep tissues were thoroughly irrigated with Irrisept chlorhexidine solution. This was allowed to sit in the wound for 3 minutes before being thoroughly irrigated out with normal saline. The capsule was then reapproximated with the previously placed Ethibond sutures. The TFL fascia was finally closed with a No. 2 Stratafix, barbed suture. Deep tissues were then reapproximated with 0 Vicryl and a running 2-0 Vicryl. The skin was closed with a running 4-0 Monocryl in a subcuticular fashion. This was reinforced with skin glue. A Mepilex silver dressing was applied. At the end of the case, all counts were correct. Horacio was transferred to the hospital bed without difficulty and suffering no apparent complication. Horacio has a good prognosis. Physical therapy will start today and without restrictions, weight-bearing as tolerated. Aspirin 81mg BID will be used for DVT prophylaxis.
[2023-09-02] MEDS: oxyCODONE 5 MG TAB PO (12:35)
--- NOTE | 2023-09-02 13:42 | IN_ITS ---
PT Notes Visit Reasons: L THR Physical Therapy Day Surgery Initial Evaluation Date: 09/02/2023 Referring Doctor: JOANN Sexton PT Orders: PT CONSULT: S/P Ortho Surgery Precautions: WBAT on the R LE with AD. Patient Profile/Admitting Diagnosis: Horacio is a 58-year-old male patient with degenerative joint disease of the right hip and status post right total hip arthroplasty on postoperative day 0. PMHX: All Active Problems (Updated 09/02/23 @ 08:50 by Saul Andrew MD) Degenerative joint disease of right hip (Acute) Medical History Prostate CA Gout Hypertension Hyperlipidemia Surgical History History of mandibular surgery Hx of cataract surgery History of arthroscopic knee surgery Social History/Home Situation: Lives with in a private home with 3 steps to enter with a rail on one side. Independent with all aspects of ADLs prior to surgery although has had worsening difficulty with mobility ADL performance due to arthritic progression. Equipment Owned/DME: [facility] Subjective: Reports 3?4/10 pain in the right hip that did not interfere with mobility ADL performance. Denied headache, chest pain, and lightheadedness throughout session. Happy about being level in B feet now, his R heel did not fully touch the floor when he stood up prior to surgery due to long standing leg length discrepancy. Objective: General Observation: Resting in bed. Mepilex Ag over surgical incision. TDS to be legs. Arcelia present in room throughout session. Mental Status: A and O x 4 Pain: As above ROM: Right Lower Extremity: Hip flexion WFL. Hip abduction WFL. Knee flexion WFL. Ankle dorsiflexion WFL. Ankle plantarflexion WFL. Left Lower Extremity: Hip flexion WFL. Hip abduction WFL. Knee flexion WFL. Ank le dorsiflexion WFL. Ankle plantarflexion WFL. Strength: Right Lower Extremity: Hip flexors 4-/5. Hip abductors 4-/5. Knee flexors 5/5. Knee extensors 4-/5. Ankle dorsiflexors 5/5. Ankle plantarflexors 5/5. Left Lower Extremity:Hip flexors 5/5. Hip abductors 5/5. Knee flexors 5/5. Knee extensors 5/5. Ankle dorsiflexors 5/5. Ankle plantarflexors 5/5. Sensation: Intact as to pain and light pressure in B LE Bed Mobility/Transfers: Minimal cueing provided for use of B hands as needed for support, movement sequence, AD management, and posture to reduce fall risk and minimize pain report Supine to sit stand by assist Sit to stand stand by assist with FWW Stand to sit standby assist Bed to chair standby assist Gait: Facilitated safe and correct performance of level surface ambulation covering a distance of 150 feet using front wheeled walker with step through heel-toe reciprocal gait pattern requiring only standby assist and minimal verbal cueing for AD management, limb advancement, posture, and overall safety to reduce fall risk and minimize pain report. Stairs: Guided patient with safe and correct negotiation of 3 x 4-inch steps and 2 x 6- inch steps while holding onto bilateral rails with step to gait pattern requiring minimal verbal cueing to increase knee flexion on the right during each ascent, and placement, posture, and overall safety to reduce fall risk and minimize pain report. Contact-guard assist provided. Balance: Static Sitting: Normal Dynamic Sitting: Normal Static Standing: Fair Dynamic Standing: Fair Special Tests: Mobility Limitations Standardized Measure [facility] AM-PAC 6 clicks Basic Mobility Inpatient Short Form: Raw Score: 24 CMS Score: 0% deficit Informed Consent/Education: Patient instructed in purpose of PT consult. Packet containing IMMANUEL exercise protocol has been given to patient. Education and training on initial set of exercises that can be done at home have been completed with patient. Trained patient with correct performance of exercises below to maximize motor control, joint flexibility, soft tissue extensibility of the R hip musculature to facilitate return to independent functional mobility performance. Access Code: [email or web address] URL: [email or web address] Date: 09/02/2023 Prepared by: Aniya Askew Exercises - Gluteal Sets - 1 x daily - 7 x weekly - 1 sets - 10 reps - 5 hold - Supine Heel Slide - 1 x daily - 7 x weekly - 1 sets - 10 reps - 5 hold - Supine Ankle Pumps - 1 x daily - 7 x weekly - 1 sets - 10 reps - 5 hold - Seated March - 1 x daily - 7 x weekly - 1 sets - 10 reps - 5 hold - Seated Long Arc Quad - 1 x daily - 7 x weekly - 1 sets - 10 reps - 5 hold Assessment: Patient requires use of a front wheeled walker for all mobility ADL performance to maximize independence and reduce fall risk. Patient presents with clinical signs and symptoms consistent with current/admitting diagnoses that have resulted to mobility limitations, gait instability, generalized weakness, and impairment of motor control as demonstrated by the following impairment level findings: 1. Decreased strength to R hip e major muscle groups 2. Impaired standing balance 3. Limitation of joint range of motion in R hip Impairments are contributing to the following functional limitations: 1. Inability to safely ambulate without assistive device 2. Increase completion time for mobility ADL performance 3. Increased fall risk Patient is assessed as a 77761 moderate complexity based on the following: History: 68-year-old female with impairment level findings, functional limitations, and past medical history as indicated above Examination: Demonstrable impairment in strength, balance, and mobility level with underlying impairments and functional limitations as documented above Presentation: Evolving Decision Makin moderate complexity Goals: N/A. PT evaluation and 1-2 treatment sessions only for functional mobility training using recommended AD and for HEP instruction. Plan of Care/Treatment Plan: N/A. PT evaluation and 1-2 treatment session only for functional mobility training using recommended AD and for HEP instruction. DISCHARGE RECOMMENDATIONS: Home when medically cleared by orthopedic surgeon. Recommend outpatient PT services in order to optimize functional mobility outcomes and facilitate return to independent community ambulation without an assistive device. TREATMENT CODE/TIME: 81155 x 27 minutes for 1 unit (13:42-14:09). Thank you for the opportunity to participate in the care of this patient. Please sign an return this page within 30 days if you agree with the above POC. Thank you! Physician Signature Date [facility] Thank you for the opportunity to participate in the care of this patient. Aniya Askew PT, DPT, CLT [facility] [place], [place]
--- NOTE | 2023-09-02 14:16 | W.ANESPOSTOP ---
Postoperative Evaluation Date, Time and Location Date Performed: 09/02/23 Time Performed: 14:17 Patient Location: Day Surgery Unit Vital Signs Most Recent Imported Vital Signs: Most Recent Vital Signs Temp Pulse Resp BP Pulse Ox 36.5 C 84 16 137/92 H 96 09/02/23 13:07 09/02/23 13:07 09/02/23 13:07 09/02/23 13:07 09/02/23 13:07 Pain Score Most Recent Pain Score: Most Recent Pain Score Pain Level [Right Hip] 2 09/02/23 09:10 Pain Level 4 09/02/23 13:07 Assessment Mental Status: Awake (Alert & Oriented to Patient Baseline) Airway and Respiratory Function: Patent airway with normal (patient baseline) respiratory exam Cardiovascular Function: Hemodynamically Stable Hydration Status: Adequately Hydrated Nausea & Vomiting: No Nausea or Vomiting Pain: Pain is tolerable per patient Peripheral Nerve Block: Patient did not receive a nerve block
== END 2023-09-02 08:26 | disposition home or self-care (01) ==
LOC: SUR 08:25
PROVIDERS: Visit Provider Student in an Organized Health Care Education/Training Program
PROC: (CPT 27130; principal; 2023-09-02 10:45)
DX: M16.11 Unilateral primary osteoarthritis, right hip (principal); M87.851 Other osteonecrosis, right femur; I10 Essential (primary) hypertension; E78.5 Hyperlipidemia, unspecified
CPT/HCPCS: 20985; 27130; C1776; 97162; 73501; J0690; J1100; J1805; J2250; J2371; J2401; J2405; J2704

== ENCOUNTER 2023-09-17 15:50 | Outpatient (CLI) | payer MEDICARE, SELFPAY ==
--- NOTE | 2023-09-17 13:55 | DI.RAD_ITS ---
Exam(s) XR HIP RT COMPLETE AP PELVIS EXAM: XR HIP RT COMPLETE AP PELVIS INDICATION: 1ST POST OP. COMPARISON: CR XR PELVIS AP from 08/14/2023 XA XR HIP RT IN OR from 09/02/2023 TECHNIQUE: 2D digital imaging was performed. Two views. FINDINGS: There has been no change in the alignment of the right hip prosthesis. There are no abnormal bony bethel cencies. Mild degenerative changes are again noted in the left hip. SI joints pubic symphysis are u nremarkable. Impression: Stable right hip prosthesis. DATA REPOSITORY: RADIATION DOSE DELIVERED:
== END 2023-09-17 15:51 | disposition home or self-care (01) ==
LOC: DIORS 15:51
PROVIDERS: Visit Provider Student in an Organized Health Care Education/Training Program
DX: Z96.641 Presence of right artificial hip joint (principal); Z47.1 Aftercare following joint replacement surgery
CPT/HCPCS: 73502

== ENCOUNTER → 2023-10-16 10:23 | Outpatient (BNVA) | payer MEDICARE, SELFPAY | DX: Z47.1 Aftercare following joint replacement surgery (principal); Z96.641 Presence of right artificial hip joint ==

== ENCOUNTER → 2024-05-06 13:55 | Outpatient (BNVA) | payer MEDICARE, SELFPAY | PROVIDERS: Visit Provider Student in an Organized Health Care Education/Training Program | DX: Z12.11 Encounter for screening for malignant neoplasm of colon (principal); Z80.0 Family history of malignant neoplasm of digestive organs ==

== ENCOUNTER 2024-06-01 10:32 | Day surgery (SDC) | payer MEDICARE, SELFPAY ==
[2024-06-01 10:43] VITALS: BP 123/96; PULSE 66; RESP 16; TEMP 36; O2SAT 96
[2024-06-01 11:03] VITALS: BP 123/96; PULSE 66; RESP 16; TEMP 36; O2SAT 96
[2024-06-01] MEDS: Normal Saline Flush 10 ML SYR IV (11:15)
--- NOTE | 2024-06-01 11:25 | W.ANESPRE ---
General Info Date of Service Date Performed: 06/01/24 Height: 6 ft Weight: 105 kg Body Mass Index (BMI): 31.4 Surgical Procedure: Operation Date: 06/01/24 11:50 Proposed Procedure Side Surgeon p Cortney Das MD Meds Allergies and Home Medications Allergies Allergy/AdvReac Type Severity Reaction Status Date / Time No Known Allergies Allergy Verified 06/01/24 11:06 Home Medication ?Medication ?Instructions ?Recorded allopurinol 300 mg tablet 300 mg PO DAILY 08/14/23 irbesartan 150 mg tablet 150 mg PO DAILY 08/14/23 rosuvastatin 20 mg tablet 20 mg PO DAILY 08/14/23 alprazolam 0.25 mg tablet 0.25 mg PO TID PRN 05/05/24 cholecalciferol (vitamin D3) 125 125 mcg PO DAILY 05/05/24 mcg (5,000 unit) capsule epinephrine 0.3 mg/0.3 mL 0.3 mg IM ONCE 05/05/24 injection, auto-injector (EpiPen 2-Fermin) sertraline 50 mg tablet 50 mg PO DAILY 05/05/24 bisacodyl 5 mg tablet,delayed 5 mg PO ONCE #4 tabs 05/06/24 release (Dulcolax (bisacodyl)) polyethylene glycol 3350 17 17 g PO ONCE #238 grams 05/06/24 gram/dose oral powder Current Visit Medications: Current Medications Generic Name Dose Route Start Last Admin Trade Name Freq PRN Reason Stop Dose Admin IV Miscellaneous Supplies 1 each 06/01/24 06:00 Iv Access IV 06/30/24 23:59 DIRECTED ALEK Sodium Chloride 0 ml 06/01/24 06:00 06/01/24 11:15 Normal Saline Flush 10 Ml Syr IV 06/30/24 23:59 10 ml PRN PRN Administration Sodium Chloride 0 ml 06/01/24 06:00 Normal Saline 10 Ml Vial IJ 06/30/24 23:59 DIRECTED PRN Sterile Water 0 ml 06/01/24 06:00 Water,Injection,Sterile 10 Ml Vial IJ 06/30/24 23:59 DIRECTED PRN PFSH Medical History Medical History Chronic gout Performance anxiety Prostate CA Gout Hypertension Hyperlipidemia Surgical History Surgical History History of colonoscopy (~05/01/13) History of total right hip replacement (09/02/23) History of mandibular surgery Hx of cataract surgery History of arthroscopic knee surgery Tobacco Smoking/Tobacco Use Status: Never Alcohol Alcohol Intake: current Alcohol intake frequency: a few times a month Alcohol type: beer Substance Use Substance use: Never Substance use type: does not use Vital Signs and Lab Results Vital Signs Most Recent Vital Signs in EMR: Most Recent Vital Signs Temp Pulse Resp BP Pulse Ox 36 C L 66 16 123/96 H 96 06/01/24 11:03 06/01/24 11:03 06/01/24 11:03 06/01/24 11:03 06/01/24 11:03 Lab Results Blood Type / Crossmatch: No Data to Display Complete Blood Count: No Data to Display Complete Metabolic Panel: No Data to Display Liver Function Panel: No Data to Display Coagulation Panel: No Data to Display Cardiac Panel: No Data to Display Arterial Blood Gas: No Data to Display Venous Blood Gas: No Data to Display Pancreas Panel: No Data to Display Thyroid Panel: No Data to Display Infectious Disease: No Data to Display Blood Cultures: No Data to Display Toxicology Panel: No Data to Display Imaging and Studies Imaging and Studies Study information below may be from another EMR and interpreted by another provider. Please see original notes in EMR for more complete details. Other Study Summary:: lumbar spine xr reviewed and results in chart Anesthesia Assessment and Plan Anesthesia History Personal History: No History of Anesthesia Complications Family History: No Family History of Anesthesia Complications Exercise Tolerance Exercise Tolerance: Metabolic Equivalents>4 Pertinent Negatives Pertinent Negatives: No Symptoms of GERD, No Major Cardiovascular Symptoms or Complaints, No Major Pulmonary Symptoms or Complaints and No History of CVA/TIA Cardiac & Pulmonary Exam Cardiac Exam: Normal S1/S2 Heart Sounds Pulmonary Exam: Clear Bilateral Breath Sounds Implantable Cardiac Device Does patient have a Pacemaker or an ICD?: No Airway Exam Known Difficult Airway: No Mallampati Class: 3 Mouth Opening: Normal (> 3cm) Thyromental Distance: Greater than 3 cm Neck Range of Motion: Full ROM Neck Circumference: Normal Teeth Condition: Normal Dentition ASA Classification ASA Score: ASA 2 Emergency Case?: No NPO Status NPO Status: NPO Clears >2 hours, Solids >8 hours Anesthesia Plan Resuscitation Status: Full Code Anesthesia Technique: General Anesthesia Airway Planned: Natural Airway Monitors Used: Standard Monitors
--- NOTE | 2024-06-01 11:35 | W.COLOREPORT ---
Date of service: 06/01/24 Time of Service: 11:35 Colonoscopy Report Procedure Description: Procedures performed: 1. Colonoscopy with cold forceps polypectomy Preoperative diagnosis: Surveillance colonoscopy, colon polyps Postoperative diagnosis: Colon polyp, moderate sigmoid diverticulosis, grade 1 internal hemorrhoids Surgeon: Robert Das MD Indication for procedure: The patient is a 69-year-old man with a history of polyps personally as well as family history of colon cancer(2 second-degree relatives). He has no symptoms. Findings: Normal terminal ileum. There is an isolated polyp removed with cold forceps technique from the sigmoid colon. There are moderate diverticular changes throughout the entire left?colon. No active inflammation and no stricture/fibrosis was seen. Grade 1 internal hemorrhoids noted on retroflexion. Surveillance interval/follow-up: Pending pathology results of the polyp -sessile serrated or tubulovillous histology would warrant repeating in 3 years. Otherwise 5 years because of the history. Specimens: yes Estimated blood loss: Minimal Complications: None Quality of prep: Excellent Procedure in detail: The patient gave written consent and was in agreement with the indications, the potential risks as well as the benefits of the procedure. They were taken to the endoscopy suite and laid in the left lateral decubitus position. A timeout was performed and anesthesia was administered which was tolerated well. I started the procedure. Digital rectal and visual examination was performed and grossly within normal limits. A well-lubricated flexible colonoscope was then introduced and passed without any notable difficulty all the way to the cecum identified by the ileocecal valve and the appendiceal orifice. The terminal ileum was briefly intubated and looked normal visually. The scope was then slowly withdrawn with the above-noted findings. The patient tolerated the procedure well and was taken to the PACU in hemodynamically stable condition.
--- NOTE | 2024-06-01 11:36 | W.PM.DSUDISC ---
Date of service: 06/01/24 Time of Service: 11:36 Discharge Plan Disposition Patient Disposition: Home Condition: Good Discharge Details Attending Provider: Raphael Das Primary Care Provider: Unknown,Unknown Home Meds and New Rx's Prescriptions: No Action allopurinol 300 mg tablet 300 mg PO DAILY irbesartan 150 mg tablet 150 mg PO DAILY rosuvastatin 20 mg tablet 20 mg PO DAILY bisacodyl [Dulcolax (bisacodyl)] 5 mg tablet,delayed release (DR/EC) 5 mg PO ONCE Qty: 4 0RF Rx Instructions: Take per colonoscopy instructions provided by ordering providers office polyethylene glycol 3350 17 gram/dose powder 17 g PO ONCE Qty: 238 0RF Rx Instructions: Take per colonoscopy instructions provided by ordering providers office epinephrine [EpiPen 2-Fermin] 0.3 mg/0.3 mL auto-injector 0.3 mg IM ONCE Rx Instructions: as a single dose; may repeat once sertraline 50 mg tablet 50 mg PO DAILY alprazolam 0.25 mg tablet 0.25 mg PO TID PRN cholecalciferol (vitamin D3) 125 mcg (5,000 unit) capsule 125 mcg PO DAILY Discharge Instructions Additional Instructions: FINDINGS: A small polyp was found and removed today. This is why we do the colonoscopy. It is nothing to worry about. Moderate diverticulosis was seen today. This is previously known for you. It is an otherwise very common and benign condition and nothing needs to be done about it. You can probably repeat another colonoscopy in 5 years. We will determine that once the polyp results come back from pathology. Activity:: Activity as Tolerated Diet:: As Tolerated
[2024-06-01 11:41] VITALS: BMI 31.4
--- NOTE | 2024-06-01 11:56 | BOWEL_PTH ---
PATIENT: Horacio Booker LOC: [facility] U#:[id number] AGE/SX: 69/M ROOM: RE06/01/[address]: Raphael Das : 1955 BED: DIS: 06/01/2024 SPEC #: [id number] RECD: 06/01/24 13:22 STATUS: [facility] REQ #: [id number] BAYRON: 06/01/24 11:[address]: Raphael Das DEPT: Surgical Specimen RECD BY: Rashida Hobbs ENTERED: 06/01/24 13:23 SP TYPE: Bowel OTHR DR: Unknown,Unknown Tissues: 1 - BIOPSY BOWEL Procedures: GROSS AND MICRO LEVEL 4 Comments: [id number]
[2024-06-01 12:03] VITALS: BP 117/80; PULSE 67; RESP 16; TEMP 36.3; O2SAT 94
--- NOTE | 2024-06-01 12:21 | W.ANESPOSTOP ---
Postoperative Evaluation Date, Time and Location Date Performed: 06/01/24 Time Performed: 11:04 Patient Location: Day Surgery Unit Vital Signs Most Recent Imported Vital Signs: Most Recent Vital Signs Temp Pulse Resp BP Pulse Ox 36.3 C L 67 16 117/80 94 06/01/24 12:03 06/01/24 12:03 06/01/24 12:03 06/01/24 12:03 06/01/24 12:03 Pain Score Most Recent Pain Score: Most Recent Pain Score Pain Level 0 06/01/24 12:03 Assessment Mental Status: Awake (Alert & Oriented to Patient Baseline) Airway and Respiratory Function: Patent airway with normal (patient baseline) respiratory exam Cardiovascular Function: Hemodynamically Stable Hydration Status: Adequately Hydrated Nausea & Vomiting: No Nausea or Vomiting Pain: Pt. Denies Any Pain Peripheral Nerve Block: Patient did not receive a nerve block
[2024-06-01 12:35] VITALS: BP 120/90; PULSE 71; RESP 16; TEMP 36.3; O2SAT 94
== END 2024-06-01 10:33 | disposition home or self-care (01) ==
PROVIDERS: Visit Provider Student in an Organized Health Care Education/Training Program
PROC: 0DJD8ZZ Inspection of Lower Intestinal Tract, Via Natural or Artificial Opening Endoscopic (ICD-10-PCS; CPT 45378; principal; 2024-06-01 11:45)
DX: Z12.11 Encounter for screening for malignant neoplasm of colon (principal); D12.5 Benign neoplasm of sigmoid colon; K57.30 Diverticulosis of large intestine without perforation or abscess without bleeding; K64.0 First degree hemorrhoids; I10 Essential (primary) hypertension
CPT/HCPCS: 45380; 00123; 88305; J2003; J2704

== ENCOUNTER 2024-09-05 12:52 | Outpatient (CLI) | payer MEDICARE, SELFPAY ==
--- NOTE | 2024-09-05 10:45 | DI.RAD_ITS ---
Exam(s) XR HIP RT AP LAT ONLY EXAM: XR HIP RT AP LAT ONLY CLINICAL HISTORY: ANNUAL F/U R IMMANUEL. TECHNIQUE: 2D digital imaging was performed. Two views COMPARISON: CR XR HIP RT COMPLETE AP PELVIS from 09/17/2023 FINDINGS: BONES: No acute fracture is present. No bony destructive lesion is seen. JOINTS: No dislocation present. Stable alignment of the hip prosthesis. SOFT TISSUE: Normal. IMPRESSION: Stable appearance of right hip prosthesis. DATA REPOSITORY: RADIATION DOSE DELIVERED:
== END 2024-09-05 12:53 | disposition home or self-care (01) ==
LOC: DIORS 12:56
PROVIDERS: PCP Legal Medicine; Visit Provider Physician Assistant
DX: Z47.1 Aftercare following joint replacement surgery (principal); Z96.641 Presence of right artificial hip joint
CPT/HCPCS: 99213; 73502

== ENCOUNTER 2024-11-21 14:14 | Outpatient (REF) | payer MEDICARE, SELFPAY ==
[2024-11-21 15:57] LABS: Bacteria Few HPF (Negative); C & S Indicated? No; Casts Negative LPF (Negative); Crystals Negative HPF (Negative); Epithelial Cells Few HPF (Negative); Mucus Trace (Negative); Other Cells Rare Renal (Negative)
== END 2024-11-21 14:15 | disposition home or self-care (01) ==
LOC: NCHCN 14:14
PROVIDERS: PCP Legal Medicine; Visit Provider Nurse Practitioner Family
DX: R31.0 Gross hematuria (principal); R82.89 Other abnormal findings on cytological and histological examination of urine
CPT/HCPCS: 81015; 87086

== ENCOUNTER 2025-02-01 10:00 | Outpatient (CLI) | payer MEDICARE, SELFPAY ==
--- NOTE | 2025-02-01 09:30 | DI.RAD_ITS ---
Exam(s) XR CHEST 2V PA LATERAL EXAM: XR CHEST 2V PA LATERAL CLINICAL HISTORY: evaluate pathology R05.9 COUGH TECHNIQUE: 2D digital imaging was performed of the chest. Two images were obtained. PA and lateral views were obtained. COMPARISON: No exams were available for comparison FINDINGS: MEDIASTINUM: Normal. HEART: Normal. PULMONARY VASCULATURE: Normal. LUNGS: There are increased lung markings in the left lower lobe suspicious for pneumonia. There is a 3 mm nodule in the left upper lobe. PLEURAL SPACE: No pleural effusion or pneumothorax. BONE:Within normal limits for the patient's age. OTHER FINDINGS:Normal. IMPRESSION: 1. Findings suspicious for left lower lobe infiltrate which may represent pneumonia. 2. 3 mm left upper lobe pulmonary nodule. Nonemergent CT scan of the chest is recommended. DATA REPOSITORY: RADIATION DOSE DELIVERED:
== END 2025-02-01 10:20 ==
LOC: DI 10:00
PROVIDERS: PCP Legal Medicine; Visit Provider Nurse Practitioner Family
DX: R05.9 Cough, unspecified (principal); R91.8 Other nonspecific abnormal finding of lung field
CPT/HCPCS: 71046

== ENCOUNTER 2025-02-17 00:39 | Outpatient (CLI) | payer MEDICARE, SELFPAY ==
--- NOTE | 2025-02-17 10:30 | DI.CT_ITS ---
Exam(s) CT CHEST WO EXAM: CT CHEST WO CLINICAL HISTORY: evaluate pathology, lung nodule seen on imaging study, R91.1. TECHNIQUE: Imaging protocol: Axial computed tomography images were obtained and coronal and sagittal reformatted images were created and reviewed. Lung Computer Aided Detection (CAD) was utilized. COMPARISON: CR XR CHEST 2V PA LATERAL from 02/01/2025 FINDINGS: Tracheobronchial tree: Patent where visualized. No bronchiectasis is present. Pulmonary parenchyma: No consolidation or dominant measurable mass. No architectural distortion. There is a calcified granuloma in the left upper lobe which corresponds to the nodule seen on the chest x-ray. No suspicious pulmonary nodules are present. Mediastinum and Graciela: No dominant adenopathy or fluid collection. The esophagus is unremarkable. Thyroid gland: Unremarkable. Pleura: No effusion or pneumothorax. Heart: The heart is not dilated. There is moderate three-vessel coronary artery calcification. No pericardial effusion. Aorta: Ascending thoracic aorta measures 4.0 x 3.8 cm. Atherosclerotic calcification is present. Lymph nodes: Within normal limits. Soft tissues: There is mild bilateral gynecomastia. Bones:Within normal limits for the patient's age. IMPRESSION: 1. There are no suspicious pulmonary nodules. 2. There is a calcified granuloma in the left upper lobe which corresponds to the nodule seen on the chest x-ray. 3. No acute pulmonary process. 4. The ascending aorta measures 4.0 x 3.8 cm. RADIATION DOSE DELIVERED: 269.99mGy.cm Total DLP 269.99mGy.cm Total DLP DATA REPOSITORY: All CT scans at this facility are submitted to the National Radiology Data Registry (NRDR) Dose Index Registry (DIR) with the [employer] ([employer]). RADIATION OPTIMIZATION: All CT scans at this facility use at least one of these dose optimization techniques: automated exposure control; mA and/or kV adjustment per patient size (includes targeted exams where dose is matched to clinical indication); or iterative reconstruction.
== END 2025-02-17 00:59 ==
LOC: DI 00:39
PROVIDERS: PCP Legal Medicine; Visit Provider Nurse Practitioner Family
DX: R91.1 Solitary pulmonary nodule (principal)
CPT/HCPCS: 71250

== ENCOUNTER 2025-02-17 00:50 | Outpatient (CLI) | payer MEDICARE, SELFPAY ==
--- NOTE | 2025-02-17 | DI.CT_ITS ---
Exam(s) CT ABDOMEN PELVIS WO/W EXAM: CT ABDOMEN PELVIS WO/W CLINICAL HISTORY: Gross hematuria, R31.0. TECHNIQUE: Imaging Protocol: Axial computed tomography images with coronal and sagittal reformatted images were created and reviewed CONTRAST MATERIAL: Intravenous: Omnipaque-350 100cc Performed with CT urogram protocol. COMPARISON: CT CT CHEST WO from 02/17/2025 FINDINGS: VISUALIZED LUNG BASES: No nodules nor pleural effusions evident. ABDOMEN: There is no ascites. LIVER: There are no focal hepatic lesions evident. No dilated intrahepatic ducts. GALLBLADDER/BILIARY: No obvious gallbladder pathology. CBD is not dilated. PANCREAS: No evidence of pancreatic mass nor dilatation of the pancreatic duct. SPLEEN: Spleen is not enlarged. No obvious intrasplenic lesions. Splenic and portal veins are patent. ADRENALS: There are no significant adrenal masses. 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 The largest cyst in the right kidney is in the inferior pole and measures 4.4 cm. The largest cyst in the left kidney measures 4.5 cm. There are no solid renal masses. There is a 4 millimeter nonobstructive calculus in left kidney. There are no radiopaque calculi in the right kidney. Solitary bilateral ureters are not dilated. There are no filling defects in the renal pelves and infundibuli. URINARY BLADDER: Partially obscured by beam hardening artifact from right hip prosthesis. The bladder wall appears somewhat trabeculated. No obvious diverticuli. No obvious distinct mass. ABDOMINAL AORTA: Abdominal aorta is not enlarged. LYMPH NODES:There is no retroperitoneal nor paraaortic adenopathy. ABDOMINAL WALL: No evidence of significant anterior abdominal wall nor inguinal hernia. GI: There is no evidence of bowel obstruction, free air, nor abscess. PELVIS: GI: No evidence of appendicitis.There is diverticulosis wrote the descending- left colon and sigmoid. No evidence of obvious acute diverticulitis. LYMPH NODES: There is no intrapelvic nor inguinal adenopathy. REPRODUCTIVE: Prostate is small. URINARY BLADDER: See above OSSEOUS: No fractures and no significant osseous lesions. Right hip prosthesis. Mild degenerative changes in the left hip. Multilevel chronic degenerative disc disease. Most prominent disc space narrowing is at L3-4 and L5-S1 levels. There is some facet arthropathy evident lumbar spine, most evident at L4-5 level. There is no listhesis. IMPRESSION: 1. There are multiple cysts in both kidneys, possibly an expression of an element of adult polycystic kidney disease. One of the cysts which is in the left kidney exhibits some thin internal septation but no significant nodularity. 2. There is a solitary 4-5 mm calculus in the left kidney. There are no calculi in the nondilated ureters nor within the urinary bladder. 3. Other findings as above. RADIATION DOSE DELIVERED: 1,903.86mGy.cm Total DLP DATA REPOSITORY: All CT scans at this facility are submitted to the National Radiology Data Registry (NRDR) Dose Index Registry (DIR) with the [employer] ([employer]). RADIATION OPTIMIZATION: All CT scans at this facility use at least one of these dose optimization techniques: automated exposure control; mA and/or kV adjustment per patient size (includes targeted exams where dose is matched to clinical indication); or iterative reconstruction.
[2025-02-17] MEDS: Omnipaque 350 MG/ML 100 ML BTL 75 ML IJ (11:05)
== END 2025-02-17 01:10 ==
LOC: DI 00:50
PROVIDERS: PCP Legal Medicine; Visit Provider Urology
DX: R91.1 Solitary pulmonary nodule (principal)
CPT/HCPCS: 71250; 74178; J3490

== ENCOUNTER → 2025-06-13 10:48 | Outpatient (BNVA) | payer MEDICARE, SELFPAY | PROVIDERS: PCP Legal Medicine; Referring Provider Legal Medicine; Visit Provider Nurse Practitioner Gerontology | DX: C61 Malignant neoplasm of prostate (principal); N20.0 Calculus of kidney; R31.0 Gross hematuria; N39.3 Stress incontinence (female) (male) | CPT/HCPCS: 99215; 81002 ==

== ENCOUNTER 2025-06-13 12:04 | Outpatient (CLI) | payer MEDICARE, SELFPAY | END 2025-06-13 12:05 | disposition home or self-care (01) | LOC: LBO 12:04 | PROVIDERS: PCP Legal Medicine; Visit Provider Nurse Practitioner Gerontology | DX: C61 Malignant neoplasm of prostate (principal) | CPT/HCPCS: 36415; 81002; 84153; 99215 ==